=== PATIENT | female | born 1995 | race Two or more races ===

== ENCOUNTER 2019-05-06 22:39 | Emergency (ER) | payer SELFPAY ==
[~2019-05-06] VITALS: Ht 154.9 cm; Wt 49.9 kg
[2019-05-06 22:43] VITALS: BP 130/92
[2019-05-06 22:50] VITALS: BP 130/92
--- NOTE | 2019-05-06 22:50 | NUR ---
ED Nurse Note: pt left without being seen. Pt wanted to go to [facility] where her aunt works. ERMD aware
--- NOTE | 2019-05-06 23:59 | Emergency Room Report ---
History of Present Illness General Chief Complaint: Pelvic Pain Source: Patient Present Illness Allergies: Coded Allergies: AZITHROMYCIN (Verified Allergy, Unknown, 05/06/19) SULFA (SULFONAMIDE ANTIBIOTICS) (Verified Allergy, Unknown, 05/06/19) Patient History Last Menstrual Period: 01/26/19 Now: No : 0 Para: 0 Nursing Documentation-[facility] Past Medical History: No Stated History Hx Asthma: Yes Hx Gastrointestinal Problems: Yes - [facility] Physical Exam Vital Signs Date Time Temp Pulse Resp B/P (MAP) Pulse Ox O2 Delivery O2 Flow Rate FiO2 05/06/19 22:43 98.4 99 20 130/92 (105) 99 Room Air Medical Decision Making Diagnostic Impression: Primary Impression: Patient left without being seen ER Course Patient left without being seen Last Vital Signs Date Time Temp Pulse Resp B/P (MAP) Pulse Ox O2 Delivery O2 Flow Rate FiO2 05/06/19 22:50 98.4 20 130/92 99 Room Air 05/06/19 22:43 99 Status: unchanged Disposition: LEFT W/OUT BEING SEEN Condition: Stable Referrals: NON PHYSICIAN (PCP) Diego Davila MD May 06, 2019 23:59
== END 2019-05-06 23:00 | disposition left against medical advice (07) ==
LOC: EMR 22:55
DX: Z53.21 Procedure and treatment not carried out due to patient leaving prior to being seen by health care provider (principal)